=== PATIENT | female | born 1940 | race Asian ===

== ENCOUNTER 2016-11-22 16:08 | Inpatient (IN) | payer MEDICARE, MEDICAID ==
[~2016-11-22] VITALS: Ht 157.5 cm; Wt 67.1 kg
[2016-11-22] MEDS ORDERED: Tetanus/Diptheria/Pertussis Vaccine 0.5ml Syr IM ONE (16:15)
[2016-11-22] MEDS ORDERED: Acetaminophen 500mg (ES) tab PO ONE (16:15)
[2016-11-22] MEDS ORDERED: Neosporin Oint Ud Pkt TOP ONE (16:15)
[2016-11-22 16:30] VITALS: BP 160/77
[2016-11-22 16:50] LABS: BASOPHILS % (AUTO) 0.9 % (0.0-2.0); EOSINOPHILS % (AUTO) 0.6 % (0.0-3.0); LYMPHOCYTES % (AUTO) 22.5 % (20.0-45.0); MEAN CORPUSCULAR HEMOGLOBIN 34.2 PG (27.0-31.0); MEAN CORPUSCULAR HGB CONC 34.4 G/DL (32.0-36.0); MEAN CORPUSCULAR VOLUME 99 FL (80-99); MEAN PLATELET VOLUME 6.8 FL (6.5-10.1); MONOCYTES % (AUTO) 6.2 % (1.0-10.0); NEUTROPHILS % (AUTO) 69.7 % (45.0-75.0); PLATELET COUNT 184 K/UL (150-450); RED BLOOD COUNT 3.67 M/UL (4.20-5.40); RED CELL DISTRIBUTION WIDTH 11.5 % (11.6-14.8); WHITE BLOOD COUNT 8.5 K/UL (4.8-10.8)
[2016-11-22] MEDS ORDERED: CELEBREX100 MG ORAL (16:56)
[2016-11-22 17:00] VITALS: BP 158/68
[2016-11-22 17:03] LABS: INR 0.9 (0.9-1.1); PROTHROMBIN TIME 9.5 SEC (9.30-11.50)
--- NOTE | 2016-11-22 17:04 | Emergency Room Report ---
History of Present Illness General Chief Complaint: Multiple Trauma/Fall Source: Patient, EMS Present Illness HPI The patient presents via EMS after falling. Her sister was riding an escalator above her and fell back on top of her. She believes she lost consciousness either before after she hit her head. She's complaining about head pain and right shoulder pain. The pain is 8/10. It's sharp. She denies neck pain at a nausea at this time. She didn't have palpitations or chest pain at the time but can't tell whether she passed out before falling. The patient states her last tetanus was when she was a little girl. She denies major medical problems. No fever, dysuria, change in bowels, other joint pain. Allergies: Coded Allergies: No Known Allergies (Unverified , 11/22/16) Patient History Past Medical History: see triage record Social History: Denies: smoking, alcohol use, drug use Social History Narrative with family Reviewed Nursing Documentation: PMH: Agreed, PSxH: Agreed Nursing Documentation-PMH Past Medical History: No History, Except For Hx Hypertension: Yes Hx Gastrointestinal Problems: Yes - nephrectomy (left) Review of Systems All Other Systems: negative except mentioned in HPI Physical Exam Vital Signs Date Time Temp Pulse Resp B/P (MAP) Pulse Ox O2 Delivery O2 Flow Rate FiO2 11/22/16 16:00 97.9 88 16 157/94 96 Room Air Sp02 EP Interpretation: reviewed, normal General Appearance: well appearing, no apparent distress, GCS 15 Head: other - large abrasion, hematoma R parietal region Eyes: right eye other - subconjunctival hemorrhage, bilateral eye EOMI ENT: moist mucus membranes Neck: full range of motion, supple, no bony tend Respiratory: chest non-tender, lungs clear, normal breath sounds, other - abrasion R posterior shoulder/trapezius area Cardiovascular #1: regular rate, rhythm Cardiovascular #2: 2+ radial (R) Gastrointestinal: normal inspection, normal bowel sounds, non tender, no mass, non-distended Musculoskeletal: back normal, gait/station normal, normal range of motion, no calf tenderness, pelvis stable, other - L trapezius and L shoulder with tenderness and some decreased ROM, no crepetance, elbow, wrist and hand without tenderness Neurologic: alert, oriented x3, transmission specialist III-XII nml as tested, motor strength/tone normal, DTRs symmetric, sensory intact, cerebellar normal, normal gait, speech normal Psychiatric: mood/affect normal Skin: normal color, abrasions - scalp and R shoulder Medical Decision Making Diagnostic Impression: Primary Impression: Syncope Qualified Codes: R55 - Syncope and collapse Additional Impressions: Head trauma Qualified Codes: S09.90XA - Unspecified injury of head, initial encounter Shoulder contusion Qualified Codes: S40.011A - Contusion of right shoulder, initial encounter Subconjunctival hemorrhage Qualified Codes: H11.31 - Conjunctival hemorrhage, right eye Hyperglycemia Abrasions of multiple sites ER Course The patient presents after her sister fell on her on an escalator. She has significant head trauma. There is a question about whether she had syncope. Emergent evaluation is with EKG, CT head facial bones and neck as well as the right shoulder x-rays. Laboratory evaluation is undertaken. The patient agreed to take Tylenol and refuses other analgesia. Tetanus is updated. CT shows a large area of contusion without fracture. 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 The shoulder x rays exclude fractures and show broken acupuncture needles. Labs are unremarkable except for elevated glucose. (Some question whether taking medicine for this. Asked family to get home meds.) UA was ordered but not obtained. The patient is improved a sling is applied by techs. Neurovascular is checked by me and normal. Position good. The patient is admitted for cardiac observation for the possibility of syncope as well as due to the head injury. Patient admitted to Dr. Nguyen. Laboratory Tests Test 11/22/16 16:41 White Blood Count 8.5 K/UL (4.8-10.8) Red Blood Count 3.67 M/UL (4.20-5.40) L Hemoglobin 12.6 G/DL (12.0-16.0) Hematocrit 36.5 % (37.0-47.0) L Mean Corpuscular Volume 99 FL (80-99) Mean Corpuscular Hemoglobin 34.2 PG (27.0-31.0) H Mean Corpuscular Hemoglobin Concent 34.4 G/DL (32.0-36.0) Red Cell Distribution Width 11.5 % (11.6-14.8) L Platelet Count 184 K/UL (150-450) Mean Platelet Volume 6.8 FL (6.5-10.1) Neutrophils (%) (Auto) 69.7 % (45.0-75.0) Lymphocytes (%) (Auto) 22.5 % (20.0-45.0) Monocytes (%) (Auto) 6.2 % (1.0-10.0) Eosinophils (%) (Auto) 0.6 % (0.0-3.0) Basophils (%) (Auto) 0.9 % (0.0-2.0) Prothrombin Time 9.5 SEC (9.30-11.50) Prothrombin Time INR 0.9 (0.9-1.1) PTT 24 SEC (23-33) Sodium Level 141 mEQ/L (135-145) Potassium Level 4.8 mEQ/L (3.4-4.9) Chloride Level 102 mEQ/L (98-107) Carbon Dioxide Level 26 mEQ/L (20-30) Anion Gap 13 (5-15) Blood Urea Nitrogen 17 mg/dL (7-23) Creatinine 0.9 mg/dL (0.5-0.9) Estimate Glomerular Filtration Rate mL/min (>60) Glucose Level 239 mg/dL (74-106) H Calcium Level 8.8 mg/dL (8.6-10.2) Total Bilirubin 0.3 mg/dL (0.0-1.2) Aspartate Amino Transferase (AST) 28 U/L (5-40) Alanine Aminotransferase (ALT) 18 U/L (3-33) Alkaline Phosphatase 85 U/L (35-104) Total Protein 6.8 g/dL (6.6-8.7) Albumin 4.2 g/dL (3.5-5.2) Globulin 2.6 g/dL Albumin/Globulin Ratio 1.6 (1.0-2.7) EKG Diagnostic Results Rate: normal Rhythm: NSR ST Segments: no acute changes Rhythm Strip Diag. Results EP Interpretation: yes Rhythm: NSR, no PVC's, no ectopy Chest X-Ray Diagnostic Results Chest X-Ray Diagnostic Results : # of Views/Limited/Complete: 2 View Indication: Other EP Interpretation: Yes Interpretation: no consolidation, no effusion, no pneumothorax Impression: No acute disease Electronically Signed by: Electronically signed by Jonny Duncan MD Other X-Ray Diagnostic Results Other X-Ray Diagnostic Results : X-Ray ordered: R shoulder # of Views/Limited Vs Complete: 3 View Indication: Pain EP Interpretation: Yes Interpretation: no dislocation, no soft tissue swelling, no fractures, other Impression: No acute disease Electronically Signed by: Electronically signed by Jonny Duncan MD CT/MRI/US Diagnostic Results CT/MRI/US Diagnostic Results : Imaging Test Ordered: head, face and neck Impression no bleed, djd, accupuncture needles Last Vital Signs Date Time Temp Pulse Resp B/P (MAP) Pulse Ox O2 Delivery O2 Flow Rate FiO2 11/23/16 00:14 97.2 65 19 126/68 98 Room Air Status: improved Disposition: ADMITTED INPATIENT Condition: Serious Referrals: NON PHYSICIAN (PCP) Jonny Duncan M.D. Nov 22, 2016 17:04
[2016-11-22 17:10] LABS: ALANINE AMINOTRANSFERASE 18 U/L (3-33); ALBUMIN/GLOBULIN RATIO 1.6 (1.0-2.7); ANION GAP 13 (5-15); ASPARTATE AMINO TRANSFERASE 28 U/L (5-40); CALCIUM 8.8 mg/dL (8.6-10.2); CARBON DIOXIDE 26 mEQ/L (20-30); CHLORIDE 102 mEQ/L (98-107); CREATININE 0.9 mg/dL (0.5-0.9); HEMOLYSIS 135; POTASSIUM 4.8 mEQ/L (3.4-4.9); SODIUM 141 mEQ/L (135-145); TOTAL PROTEIN 6.8 g/dL (6.6-8.7)
[2016-11-22 17:57] VITALS: BP 175/78
[2016-11-22 18:34] VITALS: BP 158/73
[2016-11-22] MEDS ORDERED: AMLODIPINE BESYL5 MG ORAL (19:37)
[2016-11-22] MEDS ORDERED: DICYCLOMINE HCL10 MG PO (19:37)
[2016-11-22] MEDS ORDERED: LIPITOR20 MG ORAL (19:37)
[2016-11-22 19:45] VITALS: BP 145/75
[2016-11-22 20:35] VITALS: BP 144/79
[2016-11-22] MEDS ORDERED: OLMESARTAN MEDO40 MG PO ×2 (20:35)
[2016-11-22] MEDS ORDERED: TYLENOL325 MG ORAL (20:38)
[2016-11-22] MEDS ORDERED: FISH OIL CAP1000 MG ORAL (20:38)
[2016-11-22] MEDS ORDERED: CREON DR 12,001 EACH PO (20:51)
[2016-11-22] MEDS ORDERED: Dicyclomine 10mg Cap ORAL PRN (21:45)
[2016-11-23 00:14] VITALS: BP 126/68
[2016-11-23 00:40] LABS: TROPONIN I < 0.30 ng/mL (<=0.30)
[2016-11-23 04:34] VITALS: BP 134/78
[2016-11-23 08:00] VITALS: BP 134/72
[2016-11-23 08:00] LABS: BASOPHILS % (AUTO) 0.8 % (0.0-2.0); EOSINOPHILS % (AUTO) 1.1 % (0.0-3.0); LYMPHOCYTES % (AUTO) 24.2 % (20.0-45.0); MEAN CORPUSCULAR HEMOGLOBIN 33.4 PG (27.0-31.0); MEAN CORPUSCULAR HGB CONC 33.6 G/DL (32.0-36.0); MEAN CORPUSCULAR VOLUME 100 FL (80-99); MEAN PLATELET VOLUME 6.6 FL (6.5-10.1); MONOCYTES % (AUTO) 5.7 % (1.0-10.0); NEUTROPHILS % (AUTO) 68.3 % (45.0-75.0); PLATELET COUNT 208 K/UL (150-450); RED BLOOD COUNT 3.81 M/UL (4.20-5.40); RED CELL DISTRIBUTION WIDTH 11.4 % (11.6-14.8); WHITE BLOOD COUNT 7.7 K/UL (4.8-10.8)
[2016-11-23 08:11] LABS: HEMOGLOBIN A1C 6.6 % (< 6.0)
[2016-11-23 08:12] LABS: TROPONIN I < 0.30 ng/mL (<=0.30)
[2016-11-23 08:14] LABS: ANION GAP 11 (5-15); CALCIUM 8.9 mg/dL (8.6-10.2); CARBON DIOXIDE 29 mEQ/L (20-30); CHLORIDE 102 mEQ/L (98-107); CHOLESTEROL 182 mg/dL (< 200); CHOLESTEROL/HDL RATIO 2.9 (3.3-4.4); CREATININE 0.8 mg/dL (0.5-0.9); HEMOLYSIS 22; LDL CHOLESTEROL CALC 96 mg/dL (60-99); POTASSIUM 4.1 mEQ/L (3.4-4.9); SODIUM 142 mEQ/L (135-145)
[2016-11-23] MEDS: Aspirin EC 81mg tab ORAL SCH (08:33)
[2016-11-23] MEDS: Irbesartan 150mg tablet ORAL SCH (08:33)
--- NOTE | 2016-11-23 08:36 | History & Physical ---
History and Physical History & Physicial seen and examined. Dictation completed Obey Nguyen MD Nov 23, 2016 08:36
[2016-11-23] MEDS: Enoxaparin 40mg Inj SUBQ SCH (08:37)
--- NOTE | 2016-11-23 08:38 | General Progress Note ---
Assessment/Plan Status: stable Assessment/Plan 1- Acute Encephalopathy 2- HLP 3- HTN 4- Right shoulder pain 5- GI-VT prophylaxia Plan: Cardiology and Neurology services are consulted Subjective ROS Limited/Unobtainable: No Constitutional: Reports: no symptoms HEENT: Reports: no symptoms Cardiovascular: Reports: no symptoms Respiratory: Reports: no symptoms Gastrointestinal/Abdominal: Reports: no symptoms Allergies: Coded Allergies: No Known Allergies (Unverified , 11/22/16) Objective Last 24 Hour Vital Signs Date Time Temp Pulse Resp B/P (MAP) Pulse Ox O2 Delivery O2 Flow Rate FiO2 11/23/16 08:00 97.7 68 18 134/72 96 Room Air 11/23/16 04:34 97.6 64 20 134/78 96 Room Air 11/23/16 04:00 66 11/23/16 00:14 97.2 65 19 126/68 98 Room Air 11/23/16 00:00 65 11/22/16 20:35 97.2 75 18 144/79 96 Room Air 11/22/16 20:00 74 11/22/16 19:45 98.4 85 23 145/75 94 Room Air 11/22/16 19:45 98.4 85 23 145/75 94 Room Air 11/22/16 18:34 98.4 85 22 158/73 95 Room Air 11/22/16 17:57 98.6 86 25 175/78 98 Room Air 11/22/16 17:00 97.8 88 25 158/68 96 Room Air 11/22/16 16:30 97.8 86 24 160/77 96 Room Air 11/22/16 16:00 97.9 88 16 157/94 96 Room Air Laboratory Tests 11/22/16 16:41: White Blood Count 8.5, Red Blood Count 3.67L, Hemoglobin 12.6, Hematocrit 36.5L , Mean Corpuscular Volume 99, Mean Corpuscular Hemoglobin 34.2H, Mean Corpuscular Hemoglobin Concent 34.4, Red Cell Distribution Width 11.5L, Platelet Count 184, Mean Platelet Volume 6.8, Neutrophils (%) (Auto) 69.7, Lymphocytes (%) (Auto) 22.5, Monocytes (%) (Auto) 6.2, Eosinophils (%) (Auto) 0.6, Basophils (%) (Auto) 0.9, Prothrombin Time 9.5, Prothromb Time International Ratio 0.9, Activated Partial Thromboplast Time 24, Sodium Level 141, Potassium Level 4.8, Chloride Level 102, Carbon Dioxide Level 26, Anion Gap 13, Blood Urea Nitrogen 17, Creatinine 0.9, Estimat Glomerular Filtration Rate , Glucose Level 239H, Calcium Level 8.8, Total Bilirubin 0.3, Aspartate Amino Transf (AST/SGOT) 28, Alanine Aminotransferase (ALT/SGPT) 18, Alkaline Phosphatase 85, Total Protein 6.8, Albumin 4.2, Globulin 2.6, Albumin/Globulin Ratio 1.6 11/23/16 00:15: Troponin I < 0.30 11/23/16 07:45: White Blood Count 7.7, Red Blood Count 3.81L, Hemoglobin 12.7, Hematocrit 37.9, Mean Corpuscular Volume 100H, Mean Corpuscular Hemoglobin 33.4H, Mean Corpuscular Hemoglobin Concent 33.6, Red Cell Distribution Width 11.4L, Platelet Count 208, Mean Platelet Volume 6.6, Neutrophils (%) (Auto) 68.3, Lymphocytes (%) (Auto) 24.2, Monocytes (%) (Auto) 5.7, Eosinophils (%) (Auto) 1.1, Basophils (%) (Auto) 0.8, Sodium Level 142, Potassium Level 4.1, Chloride Level 102, Carbon Dioxide Level 29, Anion Gap 11, Blood Urea Nitrogen 13, Creatinine 0.8, Estimat Glomerular Filtration Rate , Glucose Level 169H, Calcium Level 8.9, Troponin I < 0.30, Hemoglobin A1c 6.6H, Pro-B-Type Natriuretic Peptide [Pending], Triglycerides Level 122, Cholesterol Level 182, LDL Cholesterol 96, HDL Cholesterol 62H, Cholesterol/HDL Ratio 2.9L, Thyroid Stimulating Hormone (TSH) [Pending] Height (Feet): 5 Height (Inches): 2.00 Weight (Pounds): 148 General Appearance: no apparent distress EENT: PERRL/EOMI Neck: supple Cardiovascular: normal rate Respiratory/Chest: lungs clear Abdomen: soft Extremities: other - rihgt shoulder pain and minimal decreased ROM Neurologic: conservation scientist II-XII grossly normal, oriented x 3 Obey Nguyen MD Nov 23, 2016 08:38
--- NOTE | 2016-11-23 09:32 | Diagnostic Imaging Report ---
Indication: Right shoulder pain Technique: XRAY SHOULDER MIN 3V RIGHT Comparison: None Findings: There is no acute fracture or dislocation. There is osteopenia. Linear metallic densities are noted within the soft tissues suggestive of old acupuncture needles. Impression: No acute osseous abnormality.
--- NOTE | 2016-11-23 09:33 | Diagnostic Imaging Report ---
Indication: Chest pain Technique: XRAY CHEST 1 V Comparison: None Findings: Cardiac silhouette is prominent. There is mild linear atelectasis in the left lung base. There is no consolidation or pleural effusion. Surgical clips are noted in the upper abdomen. Linear metallic densities are seen within the soft tissues suggestive of acupuncture needles. Impression: Linear atelectasis in the left base. Otherwise no obvious acute cardiopulmonary disease.
--- NOTE | 2016-11-23 09:49 | Diagnostic Imaging Report ---
Indication: Neck pain Technique: CT cervical spine was performed utilizing automated exposure control without intravenous contrast material. Axial and coronal images were generated. CT dose: Total DLP 201 mGycm; CTDI vol 11.1 mGy Comparison: None Findings: There is no acute fracture. Cervical alignment is within normal limits. There is mild endplate spurring and disc space narrowing of C4/C5 with a mild posterior disc osteophyte complex. Prevertebral soft tissues are within normal limits. Visualized lung apices are clear. Linear metallic soft tissue foreign bodies are seen likely related to acupuncture needles. Impression: No acute osseous abnormality. Mild degenerative changes of the cervical spine. Other findings as above. The CT scanner at [facility] is accredited by the [employer] and the scans are performed using protocols designed to limit radiation exposure to as low as reasonably achievable to attain images of sufficient resolution adequate for diagnostic evaluation.
--- NOTE | 2016-11-23 09:51 | Diagnostic Imaging Report ---
Indication: Head pain status post trauma Technique: Continuous helical CT scanning of the head was performed utilizing automated exposure control without intravenous contrast material. Axial and coronal reconstructions were obtained. Comparison: None CT dose: Total DLP 1405 mGycm; CTDI vol 70.4 mGy Findings: There is no acute intracranial hemorrhage, mass effect or cortical edema. The ventricles, cisterns and sulci are within normal limits for age. The posterior fossa and fourth ventricle are unremarkable. Sellar and suprasellar regions are grossly unremarkable. Visualized mastoid air cells and paranasal sinuses are unremarkable. There is a right posterior scalp hematoma. There is no skull fracture. Impression: No evidence of acute intracranial hemorrhage, mass effect or cortical edema. Right posterior scalp hematoma without skull fracture. The CT scanner at [facility] is accredited by the [employer] and the scans are performed using protocols designed to limit radiation exposure to as low as reasonably achievable to attain images of sufficient resolution adequate for diagnostic evaluation.
--- NOTE | 2016-11-23 09:54 | Diagnostic Imaging Report ---
Indication: Facial pain status post trauma Technique: CT maxillofacial was performed utilizing automated exposure control without intravenous contrast material. Axial and coronal images were generated. CT dose: Total DLP 524 mGycm; CTDI vol 28.2 mGy Comparison: None Findings: No acute fracture is identified. The mandible, midface and nasal bones are intact. The orbits are unremarkable. There is mild mucosal thickening of the bilateral inferior maxillary sinuses. Impression: No acute osseous abnormality. The CT scanner at [facility] is accredited by the [employer] and the scans are performed using protocols designed to limit radiation exposure to as low as reasonably achievable to attain images of sufficient resolution adequate for diagnostic evaluation.
[2016-11-23] MEDS ORDERED: Flu Vaccine Quadrivalent 0.5ml IM ONE (10:00)
[2016-11-23 12:08] VITALS: BP 135/84
[2016-11-23 16:01] VITALS: BP 112/64
--- NOTE | 2016-11-23 17:18 | Neurology Progress Note ---
Interim History Interim History ROS Limited/Unobtainable: No Objective Physical Exam Last Vital Signs Date Time Temp Pulse Resp B/P (MAP) Pulse Ox O2 Delivery O2 Flow Rate FiO2 11/23/16 16:01 97.6 70 18 112/64 96 Room Air Laboratory Tests Test 11/23/16 00:15 11/23/16 07:45 Troponin I < 0.30 ng/mL (<=0.30) < 0.30 ng/mL (<=0.30) White Blood Count 7.7 K/UL (4.8-10.8) Red Blood Count 3.81 M/UL (4.20-5.40) L Hemoglobin 12.7 G/DL (12.0-16.0) Hematocrit 37.9 % (37.0-47.0) Mean Corpuscular Volume 100 FL (80-99) H Mean Corpuscular Hemoglobin 33.4 PG (27.0-31.0) H Mean Corpuscular Hemoglobin Concent 33.6 G/DL (32.0-36.0) Red Cell Distribution Width 11.4 % (11.6-14.8) L Platelet Count 208 K/UL (150-450) Mean Platelet Volume 6.6 FL (6.5-10.1) Neutrophils (%) (Auto) 68.3 % (45.0-75.0) Lymphocytes (%) (Auto) 24.2 % (20.0-45.0) Monocytes (%) (Auto) 5.7 % (1.0-10.0) Eosinophils (%) (Auto) 1.1 % (0.0-3.0) Basophils (%) (Auto) 0.8 % (0.0-2.0) Sodium Level 142 mEQ/L (135-145) Potassium Level 4.1 mEQ/L (3.4-4.9) Chloride Level 102 mEQ/L (98-107) Carbon Dioxide Level 29 mEQ/L (20-30) Anion Gap 11 (5-15) Blood Urea Nitrogen 13 mg/dL (7-23) Creatinine 0.8 mg/dL (0.5-0.9) Estimat Glomerular Filtration Rate mL/min (>60) Glucose Level 169 mg/dL (74-106) H Hemoglobin A1c 6.6 % (< 6.0) H Calcium Level 8.9 mg/dL (8.6-10.2) Pro-B-Type Natriuretic Peptide 230 pg/mL (0-450) Triglycerides Level 122 mg/dL (< 150) Cholesterol Level 182 mg/dL (< 200) LDL Cholesterol 96 mg/dL (60-99) HDL Cholesterol 62 mg/dL (> 60) H Cholesterol/HDL Ratio 2.9 (3.3-4.4) L Thyroid Stimulating Hormone (TSH) 2.040 uIU/mL (0.300-4.500) Impression/Recommendations Problems: (1) blunt head trauma, cerebral concussion. (2) Shoulder contusion (3) Abrasions of multiple sites Status: stable Recommendations #[id number] BENITO JOHNSON Nov 23, 2016 17:18
--- NOTE | 2016-11-23 17:30 | History and Physical Report ---
DATE OF ADMISSION: 11/22/2016 SOURCE OF INFORMATION: The patient and EMR. History Of Present Illness: The patient is a 76-year-old Fris[place] female. The patient has been brought to the emergency room after she fell down. She believes that she lost her consciousness right before or after her sister fall and hit her. She described on elevator, she was standing right behind her sister, when the sister had lost her consciousness. After fell off on her, she fell down as well. Details are unknown. There is no reported history of witnessed seizure activity. No problem with the control of bladder for urine or bowel. The patient just reports severe pain in the right shoulder. Denies any abnormal bleeding. Denies any nausea, vomiting, diarrhea, or constipation. Review Of Systems: All 12 elements are reviewed. Pertinent positives and negatives are detailed as above. ALLERGIES: NKDA. PAST MEDICAL HISTORY: hypertension, hyperlipidemia, and arthritis. Medications: Home medications including, but not limited to amlodipine, aspirin, atorvastatin, and olmesartan. FAMILY HISTORY: Reviewed and noncontributory. Social History: The patient is living by herself. She has 1 son and 1 daughter. She is . Denies history of illicit drug abuse, smoking, or alcohol abuse. PHYSICAL EXAMINATION: Vital Signs: Blood pressure 150/80, temperature 98.2, pulse rate 85-90, respiratory rate 20-25, and pulse oximetry 95% on room air. HEAD AND NECK: Atraumatic and normocephalic. CHEST: Clear to auscultation. HEART: S1 and S2. Regular rate and rhythm. ABDOMEN: Soft. No organomegaly. Musculoskeletal: Decreased range of motion in the right shoulder. Minimal ecchymosis on the right shoulder. NEUROLOGIC: The patient is awake, alert, and oriented x3. PSYCHIATRIC: Mood and affect are appropriate and normal. Laboratory Data: Labs dated 11/22/2016 WBC 8.5, hemoglobin 12.6, and platelet 184,000. Sodium 141, potassium 4.8, BUN 17, creatinine 0.9, and glucose 239. ASSESSMENT: 1. Acute encephalopathy. 2. Hypertension. 3. Hyperlipidemia. 4. Abnormal blood sugar. 5. Right-sided shoulder pain. 6. Gastrointestinal and deep vein thrombosis prophylaxes. Plan Of Care: I agree with the continuation of tele monitoring of the patient. Pending 2D echo and carotid Duplex. Cardiology has been notified. Obey Nguyen M.D. DR: GOGO JOB#: [id number] CC:
[2016-11-23 17:54] LABS: TROPONIN I < 0.30 ng/mL (<=0.30)
--- NOTE | 2016-11-23 19:57 | Cardiology Progress Note ---
Assessment/Plan Assessment/Plan The patient is seen and examined, full consult note will be dictated. Objective Last 24 Hour Vital Signs Date Time Temp Pulse Resp B/P (MAP) Pulse Ox O2 Delivery O2 Flow Rate FiO2 11/23/16 16:01 97.6 70 18 112/64 96 Room Air 11/23/16 16:00 70 11/23/16 12:08 96.8 74 18 135/84 96 Room Air 11/23/16 12:00 69 11/23/16 08:34 68 130/74 11/23/16 08:33 130/74 11/23/16 08:00 97.7 68 18 134/72 96 Room Air 11/23/16 08:00 67 11/23/16 04:34 97.6 64 20 134/78 96 Room Air 11/23/16 04:00 66 11/23/16 00:14 97.2 65 19 126/68 98 Room Air 11/23/16 00:00 65 11/22/16 20:35 97.2 75 18 144/79 96 Room Air 11/22/16 20:00 74 Intake and Output 11/23/16 11/24/16 19:00 07:00 Intake Total 840 ml Balance 840 ml Intake Oral 840 ml # Voids 3 Laboratory Tests Test 11/23/16 00:15 11/23/16 07:45 11/23/16 16:51 Troponin I < 0.30 ng/mL (<=0.30) < 0.30 ng/mL (<=0.30) < 0.30 ng/mL (<=0.30) White Blood Count 7.7 K/UL (4.8-10.8) Red Blood Count 3.81 M/UL (4.20-5.40) L Hemoglobin 12.7 G/DL (12.0-16.0) Hematocrit 37.9 % (37.0-47.0) Mean Corpuscular Volume 100 FL (80-99) H Mean Corpuscular Hemoglobin 33.4 PG (27.0-31.0) H Mean Corpuscular Hemoglobin Concent 33.6 G/DL (32.0-36.0) Red Cell Distribution Width 11.4 % (11.6-14.8) L Platelet Count 208 K/UL (150-450) Mean Platelet Volume 6.6 FL (6.5-10.1) Neutrophils (%) (Auto) 68.3 % (45.0-75.0) Lymphocytes (%) (Auto) 24.2 % (20.0-45.0) Monocytes (%) (Auto) 5.7 % (1.0-10.0) Eosinophils (%) (Auto) 1.1 % (0.0-3.0) Basophils (%) (Auto) 0.8 % (0.0-2.0) Sodium Level 142 mEQ/L (135-145) Potassium Level 4.1 mEQ/L (3.4-4.9) Chloride Level 102 mEQ/L (98-107) Carbon Dioxide Level 29 mEQ/L (20-30) Anion Gap 11 (5-15) Blood Urea Nitrogen 13 mg/dL (7-23) Creatinine 0.8 mg/dL (0.5-0.9) Estimat Glomerular Filtration Rate mL/min (>60) Glucose Level 169 mg/dL (74-106) H Hemoglobin A1c 6.6 % (< 6.0) H Calcium Level 8.9 mg/dL (8.6-10.2) Pro-B-Type Natriuretic Peptide 230 pg/mL (0-450) Triglycerides Level 122 mg/dL (< 150) Cholesterol Level 182 mg/dL (< 200) LDL Cholesterol 96 mg/dL (60-99) HDL Cholesterol 62 mg/dL (> 60) H Cholesterol/HDL Ratio 2.9 (3.3-4.4) L Thyroid Stimulating Hormone (TSH) 2.040 uIU/mL (0.300-4.500) ZABRINA LINDQUIST Nov 23, 2016 19:57
[2016-11-23 20:00] VITALS: BP 131/63
[2016-11-23] MEDS: Atorvastatin 20mg tab ORAL SCH (21:18)
[2016-11-24] VITALS: BP 128/69
--- NOTE | 2016-11-24 03:00 | Consultation ---
DATE OF CONSULTATION: 11/23/2016 NEUROLOGICAL CONSULTATION REQUESTING PHYSICIAN: Obey Nguyen M.D. History Of Present Illness: This is a 76-year-old female, seen in neurological consultation to evaluate acute head trauma. The patient informed me that she was in [place] shopping [place], riding an elevator up, and her sister who was standing in front of her fell backwards, landing on the patient and she fell backwards. She probably lost bit of consciousness after she injured her head. Upon awakening, she felt severe pain in the injury side, but also right shoulder and right hip. The patient was brought to the emergency room, blood pressure 157/94 and afebrile. She was fully awake, alert, and oriented. Her imaging studies included an x-ray of both shoulders, no fracture noted. CT scan of the brain revealed no evidence of acute abnormalities. No midline shift. No hemorrhage. No evidence of trauma. Her chest x-ray, linear atelectasis of the left base, otherwise no obvious abnormalities. Maxillofacial CAT scan revealed no fracture or dislocation. Cervical spine CT revealed mild degenerative changes, no fracture, and no dislocation. Her laboratory work included normal CBC study, coagulation panel, unremarkable electrolyte panel except blood sugar of 239 and hemoglobin A1c of 6.6. Normal TSH and lipid panel. Since admission until present there were no further paroxysmal events. Past Medical History: The patient has a history of hypertension, hyperlipidemia, degenerative joint disease with chronic knee pain. Medications: Treatment prior to admission included Tylenol as needed, amlodipine, atorvastatin, Celebrex, dicyclomine, fish oil, and olmesartan. ALLERGIES: None reported. Social History: There is no history of alcohol or drug abuse. She is nonsmoker. Review Of Symptoms: Headache, especially upright position; pain in her right shoulder; right hip; generalized aches and pains; dizziness when trying to ambulate; and some nausea when upright. No chest pain. No palpitations. No respiratory problems. There is no abdominal pain or discomfort. No urine or bowel incontinence. No history of seizure or strokes. PHYSICAL EXAMINATION: General: Well-developed and well-nourished female, not in acute distress, sitting in the chair comfortably with family in the room. Vital Signs: Her vital signs now are stable, blood pressure 112/64 and temperature 97.6. HEENT: Head, normocephalic. There is tenderness on palpation diffusely. There is a bruise noted in the right vertex parietal area. Neck: Tender on palpation especially at the base of skull, limited range of motion on lateral bending. Extremities: Tender on palpation of the lumbar paraspinal region. Upper and lower extremities without clubbing, cyanosis, or edema. There is a large bruise on left thigh region. Tenderness of both knees. Mental Status: She is alert and oriented x3. There is no evidence of aphasia or apraxia. Cognitive function normal. Cranial Nerve II: Pupils both responding to light and accommodation. Extraocular movements intact. No nystagmus. CRANIAL NERVE V: Normal corneal responses. CRANIAL NERVE VII: No facial asymmetry. CRANIAL NERVE VII: Grossly normal hearing. CRANIAL NERVES IX THROUGH XII: Within normal limits. Motor Examination: Normal muscle tone. Able to lift arms and legs against gravity. Deep tendon reflexes 1+ symmetric with downgoing toes on both sides. Sensory exam normal to pinprick and light touch. Gait is slow. IMPRESSION: 1. This is a 76-year-old female with a history of mechanical fall with head trauma with transient loss of consciousness. 2. Cerebral concussion. 3. Status post right shoulder and right hip contusion with muscle/ligamentous sprain. 4. Generalized aches and pains due to contusion. 5. Hyperlipidemia. 6. Hypertension. RECOMMENDATIONS: 1. Orthostatic blood pressure. 2. Fall precautions. 3. Continue with pain management. 4. Lovenox, Bentyl, Lipitor, Tylenol as needed. 5. PT/OT assessment. Safety of ambulation. Thank you for allowing me to see this interesting patient in neurological consultation. Gildardo Brown M.D. DR: JOYA JOB#: [id number] CC:
[2016-11-24 04:00] VITALS: BP 146/77
[2016-11-24 06:08] LABS: EOSINOPHILS % (AUTO) 1.2 % (0.0-3.0); LYMPHOCYTES % (AUTO) 34.2 % (20.0-45.0); MEAN CORPUSCULAR HEMOGLOBIN 33.9 PG (27.0-31.0); MEAN CORPUSCULAR HGB CONC 34.1 G/DL (32.0-36.0); MEAN CORPUSCULAR VOLUME 99 FL (80-99); MEAN PLATELET VOLUME 7.2 FL (6.5-10.1); MONOCYTES % (AUTO) 7.1 % (1.0-10.0); NEUTROPHILS % (AUTO) 56.5 % (45.0-75.0); PLATELET COUNT 198 K/UL (150-450); RED BLOOD COUNT 3.58 M/UL (4.20-5.40); RED CELL DISTRIBUTION WIDTH 11.6 % (11.6-14.8)
[2016-11-24 06:32] LABS: ANION GAP 11 (5-15); CALCIUM 9.3 mg/dL (8.6-10.2); CARBON DIOXIDE 28 mEQ/L (20-30); CHLORIDE 105 mEQ/L (98-107); CREATININE 0.8 mg/dL (0.5-0.9); HEMOLYSIS 2; POTASSIUM 3.9 mEQ/L (3.4-4.9); SODIUM 144 mEQ/L (135-145)
[2016-11-24 08:00] VITALS: BP 122/71
[2016-11-24] MEDS: Irbesartan 150mg tablet ORAL SCH (08:34)
[2016-11-24] MEDS: Aspirin EC 81mg tab ORAL SCH (08:34)
[2016-11-24] MEDS: Enoxaparin 40mg Inj SUBQ SCH (08:37)
[2016-11-24 12:00] VITALS: BP 126/63
--- NOTE | 2016-11-24 12:51 | Diagnostic Imaging Report ---
APPROVED REPORT CPT Code: 60716 Vascular Symptoms Syncope CAROTID (BILATERAL) - Imaging reveals no significant plaque within the right and left extracranial carotid arteries. The Doppler spectral flow analysis is within normal limits throughout the extracranial carotid arteries bilaterally. VERTEBRAL- The vertebral arteries are within normal limits.
--- NOTE | 2016-11-24 14:31 | General Progress Note ---
Assessment/Plan Status: stable Assessment/Plan 1. Acute encephalopathy. 2. Hypertension. 3. Hyperlipidemia. 4. Abnormal blood sugar. 5. Right-sided shoulder pain. 6. Gastrointestinal and deep vein thrombosis prophylaxes. 7. DM- New diagnosis Plan: Cardiology and Neurology services Notes are reviewed start Januvia 25 mg qd Subjective ROS Limited/Unobtainable: No Constitutional: Reports: malaise HEENT: Reports: no symptoms Cardiovascular: Reports: no symptoms Gastrointestinal/Abdominal: Reports: no symptoms Allergies: Coded Allergies: No Known Allergies (Unverified , 11/22/16) Objective Last 24 Hour Vital Signs Date Time Temp Pulse Resp B/P (MAP) Pulse Ox O2 Delivery O2 Flow Rate FiO2 11/24/16 13:26 68 65 73 11/24/16 12:00 74 11/24/16 08:35 73 146/77 11/24/16 08:34 146/77 11/24/16 08:00 98.1 80 20 122/71 97 Room Air 11/24/16 08:00 72 11/24/16 04:11 57 11/24/16 04:00 97.0 64 20 146/77 92 Room Air 11/24/16 00:00 97.9 68 20 128/69 90 Room Air 11/24/16 00:00 61 11/23/16 20:00 97.5 75 18 131/63 97 Room Air 11/23/16 20:00 70 11/23/16 16:01 97.6 70 18 112/64 96 Room Air 11/23/16 16:00 70 Intake and Output 11/24/16 11/25/16 19:00 07:00 Intake Total 240 ml Balance 240 ml Intake Oral 240 ml # Voids 1 Laboratory Tests 11/23/16 16:51: Troponin I < 0.30 11/24/16 05:05: White Blood Count 6.0, Red Blood Count 3.58L, Hemoglobin 12.1, Hematocrit 35.6L , Mean Corpuscular Volume 99, Mean Corpuscular Hemoglobin 33.9H, Mean Corpuscular Hemoglobin Concent 34.1, Red Cell Distribution Width 11.6, Platelet Count 198, Mean Platelet Volume 7.2, Neutrophils (%) (Auto) 56.5, Lymphocytes (% ) (Auto) 34.2, Monocytes (%) (Auto) 7.1, Eosinophils (%) (Auto) 1.2, Basophils ( %) (Auto) 1.0, Sodium Level 144, Potassium Level 3.9, Chloride Level 105, Carbon Dioxide Level 28, Anion Gap 11, Blood Urea Nitrogen 18, Creatinine 0.8, Estimat Glomerular Filtration Rate , Glucose Level 115H, Calcium Level 9.3 Height (Feet): 5 Height (Inches): 2.00 Weight (Pounds): 148 General Appearance: no apparent distress EENT: PERRL/EOMI Neck: supple Cardiovascular: normal rate Respiratory/Chest: lungs clear Abdomen: soft Extremities: other - right shoulder pain and limited movement secondary to pain 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
[2016-11-24 15:49] VITALS: BP 113/60
--- NOTE | 2016-11-24 17:45 | Consultation ---
DATE OF CONSULTATION: 11/23/2016 CARDIOLOGY CONSULTATION REFERRING PHYSICIAN: Obey Nguyen M.D. REASON FOR CONSULTATION: Management of possible syncope. History Of Present Illness: The patient is a very unfortunate 76-year-old female, who is brought to the hospital via EMS after an episode of fall. It is not clear whether the patient had lost consciousness prior to the event, but it appears that this is mostly a mechanical fall. She was riding on an escalator with her sister who suddenly loses consciousness and falls on her. She fell back on the ground and hit her head. She suffered from pain over the back of her head with some lacerations. She denies any palpitations, chest pain, shortness of breath, loss of consciousness, or any signs of presyncope prior to this event. On arrival to the emergency department, her blood pressure was 157/94 and pulse of 88. A 12-lead electrocardiogram was significant for sinus rhythm with no ST and T-wave abnormalities with no QT prolongation or any evidence of AV dada block. She was admitted to telemetry under care of Dr. Nguyen. Cardiology consultation was made at the request of Dr. Nguyen for evaluation of possible syncope. PAST MEDICAL HISTORY: Hypertension and hyperlipidemia. PAST SURGICAL HISTORY: Left nephrectomy. Medications: List of medication acetaminophen 650 mg q.6 h. p.r.n. for temperature over 101 degrees and pain, amlodipine 5 mg daily, atorvastatin 20 mg daily, Celebrex 100 mg twice daily p.r.n. pain, dicyclomine 10 mg p.o. daily, fish oil 1000 mg one capsule daily, Creon DR 12,000 units one tablet daily, and olmesartan 40 mg p.o. daily. ALLERGIES: No known drug allergies. SOCIAL HISTORY: Denies any tobacco, alcohol, or illicit drug use. Review Of Systems: HEENT: Head, pain in the head after trauma and laceration. Denies any diplopia or blurred vision. Constitutional: Denies any fever, chills, night sweats, or weight loss. Cardiovascular: Denies any chest pain, shortness breath, PND, orthopnea, leg swelling, or syncope. Pulmonary: Denies any cough, hemoptysis, or wheezing. Gastrointestinal: Denies any nausea, vomiting, diarrhea, constipation, abdominal pain, or GI bleed. Genitourinary: Denies any hematuria, dysuria, or incontinence. Neurology: Denies any motor dysfunction, sensory deficit, or altered speech. Musculoskeletal: There is abrasion over the scalp and also right shoulder. Laboratory And Diagnostic Data: Imaging study, a chest x-ray shows linear atelectasis in the left base, otherwise no acute cardiopulmonary disease. A 12-lead electrocardiogram shows sinus rhythm with no ST and T-wave abnormalities. Laboratory findings, WBC is 8.5, hemoglobin 12.6, hematocrit 36.5, and platelet count 184,000. Sodium is 141, potassium is 4.8, chloride 102, bicarbonate 26, BUN of 17, creatinine 0.9, and glucose is 239. Calcium is 8.8. Troponin I x3 negative. ProBNP was 230. The lipid panel shows triglyceride 122, cholesterol 182, LDL of 96, and HDL of 62. TSH was 2.04. Assessment And Plan: The patient is a very pleasant 76-year-old lady who is seen in Cardiology consultation at request of Dr. Nguyen. 1. Head trauma, doubt the patient had presyncope event, however, given the benefit of doubt, assess the orthostasis and Neurology consultation will be required. Her cardiac rhythm will be monitored throughout her stay. We will also obtain a carotid ultrasound to assess carotid artery flow. A 2D echocardiography in this patient was reviewed showing normal LV systolic function with LVEF over 60%. There was grade 1 LV diastolic dysfunction consistent with impaired left ventricular relaxation. The right ventricular systolic pressure was also measured at 29.29. 2. History of hypertension. At the time of patient's arrival to the hospital, blood pressure was 200. We will continue with her amlodipine and olmesartan. I would like to thank, Dr. Nguyen, for the kind consultation. Yayo Bowman M.D. DR: SALVADOR JOB#: [id number] CC:
[2016-11-24 20:00] VITALS: BP_SYST 137; BP_SYST 151; BP_DIAS 76; BP_DIAS 96
[2016-11-24] MEDS: Atorvastatin 20mg tab ORAL SCH (20:30)
--- NOTE | 2016-11-24 22:54 | Cardiology Progress Note ---
Assessment/Plan Assessment/Plan 1. Accelerated HTN, continue Irbesartan and amlodipine. 2. Presumptive pre-syncope, work up in progress, LVEF is within normal limits, continue hydration. Objective Last 24 Hour Vital Signs Date Time Temp Pulse Resp B/P (MAP) Pulse Ox O2 Delivery O2 Flow Rate FiO2 11/24/16 20:00 97.9 70 21 137/76 95 Room Air 11/24/16 20:00 97.0 73 21 151/96 98 Room Air 11/24/16 18:36 82 115/81 11/24/16 16:00 67 11/24/16 15:49 97.7 68 18 113/60 94 Room Air 11/24/16 13:26 68 65 73 11/24/16 12:00 74 11/24/16 12:00 97.3 67 18 126/63 96 Room Air 11/24/16 08:35 73 146/77 11/24/16 08:34 146/77 11/24/16 08:00 98.1 80 20 122/71 97 Room Air 11/24/16 08:00 72 11/24/16 04:11 57 11/24/16 04:00 97.0 64 20 146/77 92 Room Air 11/24/16 00:00 97.9 68 20 128/69 90 Room Air 11/24/16 00:00 61 Intake and Output 11/24/16 11/25/16 19:00 07:00 Intake Total 820 ml Balance 820 ml Intake Oral 820 ml # Voids 4 Laboratory Tests Test 11/24/16 05:05 White Blood Count 6.0 K/UL (4.8-10.8) Red Blood Count 3.58 M/UL (4.20-5.40) L Hemoglobin 12.1 G/DL (12.0-16.0) Hematocrit 35.6 % (37.0-47.0) L Mean Corpuscular Volume 99 FL (80-99) Mean Corpuscular Hemoglobin 33.9 PG (27.0-31.0) H Mean Corpuscular Hemoglobin Concent 34.1 G/DL (32.0-36.0) Red Cell Distribution Width 11.6 % (11.6-14.8) Platelet Count 198 K/UL (150-450) Mean Platelet Volume 7.2 FL (6.5-10.1) Neutrophils (%) (Auto) 56.5 % (45.0-75.0) Lymphocytes (%) (Auto) 34.2 % (20.0-45.0) Monocytes (%) (Auto) 7.1 % (1.0-10.0) Eosinophils (%) (Auto) 1.2 % (0.0-3.0) Basophils (%) (Auto) 1.0 % (0.0-2.0) Sodium Level 144 mEQ/L (135-145) Potassium Level 3.9 mEQ/L (3.4-4.9) Chloride Level 105 mEQ/L (98-107) Carbon Dioxide Level 28 mEQ/L (20-30) Anion Gap 11 (5-15) Blood Urea Nitrogen 18 mg/dL (7-23) Creatinine 0.8 mg/dL (0.5-0.9) Estimat Glomerular Filtration Rate mL/min (>60) Glucose Level 115 mg/dL (74-106) H Calcium Level 9.3 mg/dL (8.6-10.2) Objective General Appearance: well appearing, no apparent distress, GCS 15 HEENT: + head trauma and laceration, PERRLA, EOMI. Neck: No JVD, no carotid bruit, carotid upstroke 2+ B/L Respiratory: normal breath sounds,no chest tenderness Cardiovascular: regular rate, rhythm, no murmurs, gallops or rubs Gastrointestinal: normal bowel sounds, non tender, soft, non-distended, no HSM Musculoskeletal: No edema, clubbing or cyanosis. ZABRINA LINDQUIST Nov 24, 2016 22:54
[2016-11-25] VITALS: BP 126/73
[2016-11-25 04:00] VITALS: BP 142/77
[2016-11-25 07:24] LABS: BASOPHILS % (AUTO) 0.9 % (0.0-2.0); EOSINOPHILS % (AUTO) 1.4 % (0.0-3.0); LYMPHOCYTES % (AUTO) 34.9 % (20.0-45.0); MEAN CORPUSCULAR HEMOGLOBIN 32.1 PG (27.0-31.0); MEAN CORPUSCULAR HGB CONC 32.4 G/DL (32.0-36.0); MEAN CORPUSCULAR VOLUME 99 FL (80-99); MONOCYTES % (AUTO) 7.4 % (1.0-10.0); NEUTROPHILS % (AUTO) 55.5 % (45.0-75.0); PLATELET COUNT 195 K/UL (150-450); RED BLOOD COUNT 3.65 M/UL (4.20-5.40); RED CELL DISTRIBUTION WIDTH 11.5 % (11.6-14.8); WHITE BLOOD COUNT 5.7 K/UL (4.8-10.8)
[2016-11-25 07:41] LABS: ANION GAP 10 (5-15); CARBON DIOXIDE 28 mEQ/L (20-30); CHLORIDE 106 mEQ/L (98-107); CREATININE 0.8 mg/dL (0.5-0.9); HEMOLYSIS 2; SODIUM 144 mEQ/L (135-145)
[2016-11-25 08:00] VITALS: BP 137/87
[2016-11-25 09:11] VITALS: BP 142/77
[2016-11-25] MEDS: Irbesartan 150mg tablet ORAL SCH (09:11)
[2016-11-25] MEDS: Aspirin EC 81mg tab ORAL SCH (09:11)
[2016-11-25] MEDS: Enoxaparin 40mg Inj SUBQ SCH (09:12)
--- NOTE | 2016-11-25 11:08 | General Progress Note ---
Assessment/Plan Status: stable Assessment/Plan 1. Acute encephalopathy. 2. Hypertension. 3. Hyperlipidemia. 4. Abnormal blood sugar. 5. Right-sided shoulder pain. 6. Gastrointestinal and deep vein thrombosis prophylaxes. 7. DM- New diagnosis Plan: Cardiology and Neurology services Notes are reviewed start Januvia 25 mg qd Medically stable for out patient followup Benefits for outpatient OT. Subjective ROS Limited/Unobtainable: No Constitutional: Reports: no symptoms HEENT: Reports: no symptoms Cardiovascular: Reports: no symptoms Respiratory: Reports: no symptoms Allergies: Coded Allergies: No Known Allergies (Unverified , 11/22/16) Objective Last 24 Hour Vital Signs Date Time Temp Pulse Resp B/P (MAP) Pulse Ox O2 Delivery O2 Flow Rate FiO2 11/25/16 09:11 69 142/77 11/25/16 09:11 142/77 11/25/16 08:00 97.5 70 20 137/87 96 Room Air 11/25/16 08:00 90 11/25/16 04:00 69 11/25/16 04:00 97.9 68 23 142/77 96 Room Air 11/25/16 00:00 97.3 65 20 126/73 94 Room Air 11/25/16 00:00 62 11/24/16 20:00 97.9 70 21 137/76 95 Room Air 11/24/16 20:00 97.0 73 21 151/96 98 Room Air 11/24/16 20:00 75 11/24/16 18:36 82 115/81 11/24/16 16:00 67 11/24/16 15:49 97.7 68 18 113/60 94 Room Air 11/24/16 13:26 68 65 73 11/24/16 12:00 74 11/24/16 12:00 97.3 67 18 126/63 96 Room Air Laboratory Tests 11/25/16 06:00: White Blood Count 5.7, Red Blood Count 3.65L, Hemoglobin 11.7L, Hematocrit 36.2L , Mean Corpuscular Volume 99, Mean Corpuscular Hemoglobin 32.1H, Mean Corpuscular Hemoglobin Concent 32.4, Red Cell Distribution Width 11.5L, Platelet Count 195, Mean Platelet Volume 7.0, Neutrophils (%) (Auto) 55.5, Lymphocytes (%) (Auto) 34.9, Monocytes (%) (Auto) 7.4, Eosinophils (%) (Auto) 1.4, Basophils (%) (Auto) 0.9, Sodium Level 144, Potassium Level 4.0, Chloride Level 106, Carbon Dioxide Level 28, Anion Gap 10, Blood Urea Nitrogen 17, Creatinine 0.8, Estimat Glomerular Filtration Rate , Glucose Level 110H, Calcium Level 9.0 Height (Feet): 5 Height (Inches): 2.00 Weight (Pounds): 148 General Appearance: no apparent distress EENT: PERRL/EOMI Neck: non-tender Cardiovascular: normal rate Respiratory/Chest: lungs clear Abdomen: soft Extremities: non-tender 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
--- NOTE | 2016-11-26 14:50 | Cardiology Report ---
APPROVED REPORT EXAM: Two-dimensional and M-mode echocardiogram with Doppler and color Doppler. INDICATION Hypertension/HCVD M-Mode DIMENSIONS IVSd0.9 (0.7-1.1cm)Left Atrium (MM)4.1 (1.6-4.0cm) LVDd5.5 (3.5-5.6cm)Aortic Root2.6 (2.0-3.7cm) PWd0.9 (0.7-1.1cm)Aortic Cusp Exc.1.9 (1.5-2.0cm) IVSs1.1 cm LVDs3.8 (2.5-4.0cm) PWs1.1 cm Normal left ventricular chamber size, systolic function and wall motion. Left ventricular ejection fraction estimated to be 60 %. No evidence of pericardial effusion Mild left atrial enlargement. Right cardiac chamber sizes are within normal limits. Thickened mitral valve leaflets with normal excursion. Mitral annulus and aortic root calcification. Normal pulmonic valve structure Normal tricuspid valve structure. IVC at normal size with physiologic collapse. A color flow and spectral Doppler study was performed and revealed: Mild aortic regurgitation. Mild mitral regurgitation. Mitral diastolic velocities suggest reduced left ventricular relaxation c/w mild LV diastolic dysfunction (Grade I ). Mild tricuspid regurgitation. Tricuspid systolic velocities suggests peak right ventricular systolic pressure of 29 mmHg Mild pulmonic regurgitation present.
--- NOTE | 2016-11-27 09:23 | Discharge Summary ---
Discharge Summary Hospital Course Date of Admission Nov 22, 2016 at 17:00 Date of Discharge Nov 25, 2016 at 10:23 Admitting Diagnosis SYNCOPE HPI Héctor Davis is a 76 year old female who was admitted on Nov 22, 2016 at 17:00 for Syncope Hospital Course [id number] Discharge Discharge Disposition Patient was discharged to Home with Home Health(06) Discharge Diagnoses: Karena Galvan NP Nov 27, 2016 09:23
--- NOTE | 2016-11-27 23:45 | Discharge Summary 2 SIG ---
DATE OF ADMISSION: 11/22/2016 DATE OF DISCHARGE: 11/25/2016 CONSULTANTS: 1. Gildardo Brown M.D. 2. Yayo Bowman M.D. Brief Hospital Course: The patient is a 76-year-old Nepali female, who was brought to the emergency room after she fell down. She believes she lost her consciousness after her sister fell and hit her. They were on the elevator and she was standing behind her sister. The sister fell off on her and she fell down. The exact details are unknown. There was no reported history of witnessed seizure activity. There was no loss of bladder control. She complained of severe pain on the right shoulder. On arrival to ED, there was noted abrasion on the right posterior shoulder/trapezius area. There was abrasion on the posterior scalp. EKG done showed normal sinus rhythm. Chest x-ray showed no acute disease with no consolidation, effusion, or pneumothorax. Three views x-ray on the right shoulder showed no dislocation. No soft tissue swelling. No fractures. There was no acute osseous abnormality. Head CT showed no evidence of acute intracranial hemorrhage, mass effect, or edema. There was a positive scalp hematoma noted to the right posterior scalp without any evidence of skull fracture. She was admitted to telemetry and underwent cardiac and neurologic evaluation. She was given Lovenox for DVT prophylaxis. She came in with elevated blood pressure and was given amlodipine and olmesartan. Echocardiogram done showed normal left ventricular systolic function with ejection fraction over 60%. There was grade 1 left ventricular diastolic dysfunction consistent with impaired left ventricular relaxation. The right ventricular systolic pressure was measured at 29. Cervical and maxillofacial CT was negative for acute osseous abnormality with findings of degenerative changes in the cervical spine. Carotid duplex showed no significant plaques. She had an elevated glucose and was started on Januvia 25 mg daily. Hemoglobin A1c was 6.6. She was educated and cautioned on fall precautions. She was eventually discharged home and would benefit from outpatient PT. FINAL DIAGNOSES: 1. Acute metabolic encephalopathy. 2. Hypertension. 3. Hyperlipidemia. 4. Diabetes mellitus, newly diagnosed. 5. Right-sided shoulder pain secondary to fall. 6. Accelerated hypertension. 7. Presumptive presyncope. 8. Mechanical fall with head trauma and transient loss of consciousness. 9. Cerebral concussion. 10. Right shoulder and hip contusion with muscle/ligamentous sprain. 11. Generalized aches and pains due to contusion. 12. Hyperlipidemia. Disposition: The patient was discharged home with home health for physical therapy. DISCHARGE MEDICATIONS: Refer to medication list. ACTIVITY: Fall precaution. Obey Nguyen M.D. I have been assigned to dictate discharge summary on this account and I was not involved in the patient's management. Karena Galvan N.P. DR: SOLOMON JOB#: [id number] CC: SHELBY
--- NOTE | 2016-11-28 15:50 | Cardiology Report ---
APPROVED REPORT EKG Measurement Heart [id number] Normal sinus rhythm Possible Left atrial enlargement Cannot rule out Anterior infarct, age undetermined Abnormal ECG
== END 2016-11-25 10:23 | disposition home health service (06) | DRG 88 ==
LOC: EDBD 16:08 → EMR 16:53 → 2E 17:00 → EDBEDREQ 18:22
DX: S06.0X9A Concussion with loss of consciousness of unspecified duration, initial encounter (principal); G93.41 Metabolic encephalopathy; E11.9 Type 2 diabetes mellitus without complications; I10 Essential (primary) hypertension; E78.5 Hyperlipidemia, unspecified; W19.XXXA Unspecified fall, initial encounter; Y92.59 Other trade areas as the place of occurrence of the external cause; M25.511 Pain in right shoulder; S00.01XA Abrasion of scalp, initial encounter; R55 Syncope and collapse; S40.011A Contusion of right shoulder, initial encounter; S70.01XA Contusion of right hip, initial encounter; Z23 Encounter for immunization
CPT/HCPCS: 36415; 70450; 70486; 71010; 72125; 80048; 80053; 80061; 83036; 83880; 84443; 84484; 85025; 85610; 85730; 90471; 90630; 90715; 93005; 93306; 93880; 99285